=== PATIENT | male | born 1950 | race Caucasian/White ===

== ENCOUNTER 2018-02-06 07:23 | Emergency (ER) | payer MEDICAID ==
[~2018-02-06] VITALS: Ht 162.6 cm; Wt 55.0 kg
[2018-02-06 12:30] LABS: CANNABINOID URINE SCREEN PRESUMTIVE POSITIVE (NEGATIVE); PHENCYCLIDINE URINE SCREEN NEGATIVE (NEGATIVE)
[2018-02-06 12:31] LABS: *AMPHETAMINES SCREEN URINE NEGATIVE (NEGATIVE); *BARBITURATES SCREEN URINE NEGATIVE (NEGATIVE); *BENZODIAZEPINES SCREEN URINE NEGATIVE (NEGATIVE); *COCAINE SCREEN URINE NEGATIVE (NEGATIVE); METHADONE URINE SCREEN NEGATIVE (NEGATIVE); OPIATES URINE SCREEN NEGATIVE (NEGATIVE)
[2018-02-06 12:31] LABS: BASOPHILS % 0.6 % (0.0-2.0); HEMATOCRIT. 40.5 % (42.0-52.0); HEMOGLOBIN. 13.8 g/dL (14.0-18.0); MEAN CORPUSCULAR HEMOGLOBIN 32.2 pg (28.0-32.0); MEAN CORPUSCULAR VOLUME 94.9 fL (80.0-94.0); MEAN PLATELET VOLUME 7.3 fl (7.4-10.4); MONOCYTES % 8.4 % (2.0-8.0); PLATELET 253 x1000/uL (130-400); RED BLOOD CELL COUNT 4.27 mill/uL (4.7-6.1); RED CELL DISTRIBUTION WIDTH 13.2 % (11.6-14.6)
[2018-02-06 12:33] LABS: CHLORIDE 105 mEq/L (98-107)
[2018-02-06 12:37] LABS: ETHANOL BLOOD < 10 mg/dL
[2018-02-06 12:46] LABS: T4 FREE 1.04 ng/dL (0.76-1.46)
[2018-02-06 13:00] VITALS: BP 106/68
== END 2018-02-06 13:24 | disposition home or self-care (01) ==
LOC: ER 08:01
DX: M48.02 Spinal stenosis, cervical region (principal); N50.819 Testicular pain, unspecified; R03.0 Elevated blood-pressure reading, without diagnosis of hypertension; R53.1 Weakness; M54.89 Other dorsalgia; M79.605 Pain in left leg; M79.604 Pain in right leg; F17.210 Nicotine dependence, cigarettes, uncomplicated
CPT/HCPCS: 36415; 70450; 71045; 72125; 80053; 80305; 83735; 84439; 84443; 84481; 85025; 93005; 99285; G0482; Z7610

== ENCOUNTER 2018-02-12 06:59 | Emergency (ER) | payer MEDICAID ==
[~2018-02-12] VITALS: Ht 165.1 cm; Wt 78.0 kg
[2018-02-12 07:08] VITALS: BP 110/75
== END 2018-02-12 08:31 | disposition home or self-care (01) ==
LOC: ER 07:51
DX: L30.9 Dermatitis, unspecified (principal)
CPT/HCPCS: 99283